=== PATIENT | male | born 1975 | race Caucasian/White ===

== ENCOUNTER 2018-10-29 23:43 | Emergency (ER) | payer OTHER ==
[~2018-10-29] VITALS: Ht 175.3 cm; Wt 72.6 kg
[2018-10-30] MEDS ORDERED: ONDANSETRON PF 4 MG/2 ML VIAL. IM ONE ×2 (00:15→00:30)
[2018-10-30] MEDS ORDERED: FAMOTIDINE 20 MG/2 ML VIAL IVP ONE (00:15)
[2018-10-30] MEDS ORDERED: IV NORMAL SALINE 1000ML BAG 1,000 ML IV ONE ×2 (00:15→02:45)
--- NOTE | 2018-10-30 00:22 | PHYS DOC ---
Past Medical History Past Medical History: No Pertinent History Past Surgical History: No Surgical History Alcohol Use: Heavy Drug Use: None Adult General Chief Complaint Chief Complaint: ALCOHOL INTOXICATION [facility] HPI Patient is a 43 year old male who presents from local sporting event by ambulance with reports of acute alcohol intoxication nausea and vomiting. Reportedly, patient's been drinking a large quantity of alcohol throughout the evening and became belligerent while attending the local sporting activity. On ED arrival, the patient was last evaluated, but is alert but highly intoxicated speaks in one word slurred answers to all questions asked. History is limited due to the nature of the patient's clinical presentation.[] Review of Systems Review of Systems ROS as per HPI All other systems were reviewed and found to be within normal limits, except as documented in this note. Current Medications Current Medications Current Medications Medications (Trade) Dose Ordered Sig/Ernie Start Time Stop Time Status Last Admin Dose Admin Famotidine (Pepcid Vial) 20 mg 1X ONCE 10/30/18 00:15 10/30/18 00:16 DC 10/30/18 00:30 20 MG Ondansetron HCl (Zofran) 8 mg 1X ONCE 10/30/18 00:30 10/30/18 00:31 DC 10/30/18 00:27 8 MG Sodium Chloride 1,000 ml @ 1,000 mls/hr 1X ONCE 10/30/18 02:45 10/30/18 03:44 10/30/18 02:36 1,000 MLS/HR Allergies Allergies Allergies Coded Allergies Type Severity Reaction Last Updated Verified No Known Drug Allergies 10/30/18 No Physical Exam Physical Exam Constitutional: Well developed, well nourished, smells of EtOH intoxicants. [] HENT: Normocephalic, atraumatic, bilateral external ears normal, oropharynx moist, no oral exudates, nose normal. [] Eyes: PERRLA, EOMI, conjunctivae injected, nystagmus noted[] Neck: Normal range of motion. [] Cardiovascular:Heart rate regular rhythm, no murmur [] Lungs & Thorax: Bilateral breath sounds clear to auscultation. [] Abdomen: Bowel sounds normal, soft, no tenderness. [] Extremities: No tenderness. [] Neurologic: Alert and oriented X 1, no gross motor deficits.[] Psychologic: Affect, flat. [] Current Patient Data Vital Signs Vital Signs Date Time Temp Pulse Resp B/P (MAP) Pulse Ox O2 Delivery O2 Flow Rate FiO2 10/30/18 01:45 88 95/56 (69) 100 Room Air 10/29/18 23:45 97.6 16 97.6 Lab Values Laboratory Tests Test 10/30/18 00:15 10/30/18 00:45 White Blood Count 6.6 x10^3/uL (4.0-11.0) Red Blood Count 4.52 x10^6/uL (4.30-5.70) Hemoglobin 15.2 g/dL (13.0-17.5) Hematocrit 42.8 % (39.0-53.0) Mean Corpuscular Volume 95 fL (79-100) Mean Corpuscular Hemoglobin 34 pg (25-35) Mean Corpuscular Hemoglobin Concent 35 g/dL (31-37) Red Cell Distribution Width 13.2 % (11.5-14.5) Platelet Count 228 x10^3/uL (140-400) Neutrophils (%) (Auto) 49 % (31-73) Lymphocytes (%) (Auto) 35 % (24-48) Monocytes (%) (Auto) 12 % (0-9) H Eosinophils (%) (Auto) 4 % (0-3) H Basophils (%) (Auto) 1 % (0-3) Neutrophils # (Auto) 3.2 x10^3uL (1.8-7.7) Lymphocytes # (Auto) 2.3 x10^3/uL (1.0-4.8) Monocytes # (Auto) 0.8 x10^3/uL (0.0-1.1) Eosinophils # (Auto) 0.3 x10^3/uL (0.0-0.7) Basophils # (Auto) 0.0 x10^3/uL (0.0-0.2) Sodium Level 139 mmol/L (136-145) Potassium Level 3.8 mmol/L (3.5-5.1) Chloride Level 102 mmol/L (98-107) Carbon Dioxide Level 23 mmol/L (21-32) Anion Gap 14 (6-14) Blood Urea Nitrogen 11 mg/dL (8-26) Creatinine 1.0 mg/dL (0.7-1.3) Estimated GFR (Cockcroft-Gault) 81.6 BUN/Creatinine Ratio 11 (6-20) Glucose Level 119 mg/dL (70-99) H Calcium Level 8.7 mg/dL (8.5-10.1) Total Bilirubin 0.3 mg/dL (0.2-1.0) Aspartate Amino Transferase (AST) 26 U/L (15-37) Alanine Aminotransferase (ALT) 44 U/L (16-63) Alkaline Phosphatase 71 U/L (46-116) Total Protein 8.2 g/dL (6.4-8.2) Albumin 4.2 g/dL (3.4-5.0) Albumin/Globulin Ratio 1.1 (1.0-1.7) Ethyl Alcohol Level 319 mg/dL (0-10) H Urine Opiates Screen Neg (NEG) Urine Methadone Screen Neg (NEG) Urine Barbiturates Neg (NEG) Urine Phencyclidine Screen Neg (NEG) Urine Amphetamine/Methamphetamine Neg (NEG) Urine Benzodiazepines Screen Neg (NEG) Urine Cocaine Screen Neg (NEG) Urine Cannabinoids Screen Neg (NEG) Urine Ethyl Alcohol Pos (NEG) Laboratory Tests 10/30/18 00:15 Laboratory Tests 10/30/18 00:15 EKG EKG EKG: Reviewed [] Radiology/Procedures Radiology/Procedures [] Course & Med Decision Making Course & Med Decision Making Pertinent Labs and Imaging studies reviewed. (See chart for details) [Alcohol intoxication. Patient is able to protect his own airway. Normal saline , Pepcid and Zofran given. Patient monitored closely in the emergency department will continue to be monitored until he is clinically stable for discharge.] Dragon Disclaimer Dragon Disclaimer This electronic medical record was generated, in whole or in part, using a voice recognition dictation system. Departure Departure Impression: Primary Impression: Alcohol abuse Disposition: 01 HOME, SELF-CARE Condition: STABLE Patient Instructions: Alcohol Intoxication, [id number] Additional Instructions: Please avoid drinking alcohol to excess. Go home and rest, do not attempt to drive or perform any dangerous activity while under the influence of alcohol. ALLISON LUI DO Oct 30, 2018 00:22
[2018-10-30] MEDS ORDERED: ONDANSETRON PF 4 MG/2 ML VIAL. IV ONE (00:30)
[2018-10-30 01:09] LABS: BASO % 1 % (0-3); EOS # 0.3 x10^3/uL (0.0-0.7); EOS % 4 % (0-3); HEMATOCRIT 42.8 % (39.0-53.0); HEMOGLOBIN 15.2 g/dL (13.0-17.5); LYMPH # 2.3 x10^3/uL (1.0-4.8); LYMPH % 35 % (24-48); MEAN CORPUSCULAR HEMOGLOBIN 34 pg (25-35); MEAN CORPUSCULAR HGB CONC 35 g/dL (31-37); MEAN CORPUSCULAR VOLUME 95 fL (79-100); MONO # 0.8 x10^3/uL (0.0-1.1); MONO % 12 % (0-9); NEUT # 3.2 x10^3uL (1.8-7.7); NEUT % 49 % (31-73); PLATELET COUNT 228 x10^3/uL (140-400); RED BLOOD COUNT 4.52 x10^6/uL (4.30-5.70); RED CELL DISTRIBUTION WIDTH 13.2 % (11.5-14.5); WHITE BLOOD COUNT 6.6 x10^3/uL (4.0-11.0)
[2018-10-30 01:11] LABS: CALCIUM 8.7 mg/dL (8.5-10.1); GFR 81.6; POTASSIUM 3.8 mmol/L (3.5-5.1)
[2018-10-30 01:15] LABS: BARBITURATES NEG (NEG); BENZODIAZEPINES NEG (NEG); CANNABINOIDS NEG (NEG); COCAINE NEG (NEG); METHADONE NEG (NEG); OPIATES NEG (NEG); PHENCYCLIDINE NEG (NEG)
[2018-10-30 01:18] LABS: ALBUMIN 4.2 g/dL (3.4-5.0); ALBUMIN/GLOBULIN RATIO 1.1 (1.0-1.7); TOTAL BILIRUBIN 0.3 mg/dL (0.2-1.0); TOTAL PROTEIN 8.2 g/dL (6.4-8.2)
[2018-10-30 01:19] LABS: AMPHETAMINE/METHAMPHETAMINE NEG (NEG)
[2018-10-30] MEDS ORDERED: ONDANSETRON ODT 4 MG TAB.RAPDIS. PO ONE (03:30)
[2018-10-30 06:15] VITALS: BP 118/80
--- NOTE | 2018-10-30 07:10 | EKG ---
[facility] [address] [place] [address] Test Date: 2018-10-30 Test Time: 00:26:23 Pat Name: ALLISON GARZAAYLIN Department: Room: Gender: M [employer]: : 1975 Requested By: ALLISON LUI Order Number: [id number] Reading MD: Leonardo Grajeda Measurements Intervals [place] Rate: 86 P: 47 [place]: 164 QRS: 45 QRSD: 90 T: 36 QT: 362 QTc: 436 Interpretive Statements SINUS RHYTHM LEFT ATRIAL ABNORMALITY Electronically Signed On 11-02-2018 8:43:49 RESIDENT CARE AID by Leonardo Grajeda
== END 2018-10-30 06:30 | disposition home or self-care (01) ==
LOC: ER 23:43
DX: F10.229 Alcohol dependence with intoxication, unspecified (principal); R11.2 Nausea with vomiting, unspecified; Y90.8 Blood alcohol level of 240 mg/100 ml or more
CPT/HCPCS: 36415; 80053; 80307; 85025; 93005; 96361; 96374; 96375; 99284; G0480; J2405; J3490; J7030; Q0162